=== PATIENT | male | born 1985 | race Caucasian/White ===

== ENCOUNTER 2018-02-26 18:19 | Emergency (ER) | payer OTHER ==
[2018-02-26 18:57] VITALS: TEMP 98.4
[2018-02-26] MEDS ORDERED: DIPH,PERTUS(ACELL)TETVAC-LF 0.5 ML VIAL IM ONE (20:11)
[2018-02-26] MEDS ORDERED: LIDOCAINE 1% INJ 10MG/ML (20 ML MDV) SQ ONE (20:11)
[2018-02-26] MEDS ORDERED: ceFAZolin 1,000 MG VIAL IM STA (20:11)
--- NOTE | 2018-02-26 21:33 | XR ---
EXAMINATION TYPE: XR tibia fibula RT DATE OF EXAM: 02/26/2018 COMPARISON: NONE HISTORY: Leg pain TECHNIQUE: 4 views FINDINGS: I see no fracture nor dislocation. Joint spaces are normal. There is some lucency over the skin surface area of the anterior mid tibia that could be from laceration. IMPRESSION: No fracture seen.
--- NOTE | 2018-02-26 21:48 | ED ---
General Adult HPI - General Chief complaint: Wound/Laceration Stated complaint: R leg lac Time Seen by Provider: 02/26/18 19:33 Source: patient, RN notes reviewed Mode of arrival: ambulatory Limitations: no limitations - History of Present Illness Initial comments: 33-year-old male presents to the emergency department for a chief complaint of laceration to the right romero. Patient states this happened a couple hours ago when he was using an ax backwards and he accidentally lacerated his romero. Patient states he superglue day closed at the time. Patient states he did try to clean it out with alcohol be has that was all he had. Patient denies any weakness in the right lower extremity. Patient denies any other injuries. Patient denies any fevers or chills. Patient did not have any other injuries from this incident. Patient has no other complaints at this time including shortness of breath, chest pain, abdominal pain, nausea or vomiting, headache, or visual changes. - Related Data Previous Rx's Medication Instructions Recorded Cephalexin [Keflex] 500 mg PO Q8HR 5 Days cap 02/26/18 Allergies Allergy/AdvReac Type Severity Reaction Status Date / Time No Known Allergies Allergy Verified 02/26/18 18:57 Review of Systems ROS Statement: Those systems with pertinent positive or pertinent negative responses have been documented in the HPI. ROS Other: All systems not noted in ROS Statement are negative. Past Medical History Past Medical History: No Reported History History of Any Multi-Drug Resistant Organisms: None Reported Past Surgical History: Hernia Repair, Orthopedic Surgery Past Psychological History: No Psychological Hx Reported Smoking Status: Current every day smoker Past Alcohol Use History: Occasional Past Drug Use History: Marijuana General Exam Limitations: no limitations General appearance: alert, in no apparent distress Respiratory exam: Present: normal lung sounds bilaterally. Absent: respiratory distress, wheezes, rales, rhonchi, stridor Cardiovascular Exam: Present: regular rate, normal rhythm, normal heart sounds. Absent: systolic murmur, diastolic murmur, rubs, gallop, clicks Extremities exam: Present: normal inspection, full ROM (full ROM in the right ankle, toes, and knee), normal capillary refill (Capillary refill less than 2 seconds and pedal pulse 2+ in the right lower extremity), other (There is a 4 cm laceration to the anterior lower leg. Bone is visualized in the laceration and appears intact. No foreign bodies visualized. All deep structures intact. No spreading redness or streaking redness. No drainage or signs of infection. ). Absent: tenderness, pedal edema, joint swelling, calf tenderness Course Vital Signs 02/26/18 18:54 Temperature 98.4 F Pulse Rate 111 H Respiratory 18 Rate Blood Pressure 151/74 O2 Sat by Pulse 98 Oximetry Procedures - Laceration Laceration #1 Consent Obtained: verbal consent Indication: laceration Site: lower extremity, other (right romero) Size (cm): 4 Description: linear Anesthetic Used: lidocaine 1% Anesthesia Technique: local infiltration Pre-repair: wound explored, irrigated extensively (irrigated with 1 L sterile water), deep structures intact, foreign body removed (none found) Type of Sutures: vicryl Size of Sutures: 5-0 Technique: simple, interrupted Patient Tolerated Procedure: well Medical Decision Making - Medical Decision Making 33-year-old male with a laceration to the left romero. It is about 4 cm in length and happened a few hours ago. Patient accidentally hit himself with an ax. Full range of motion in the right lower extremity and sensation intact. Neurovascular intact. Wound was irrigated extensively with a liter of sterile water. It was then cleaned with iodine and sterile procedure was used to apply sutures. There are 7 sutures total. Patient was given a tetanus shot and Ancef in the emergency department. He will be given five-day course of Keflex to prevent infection. He is to return to the emergency department if he notices any signs of infection which were discussed extensively with him. He is to follow up with primary care for wound check. Disposition Clinical Impression: Laceration Disposition: HOME SELF-CARE Condition: Good Instructions: Care For Your Stitches (ED), Laceration (ED) Additional Instructions: Please take Keflex as directed. Take Motrin or Tylenol for pain. Please have wound rechecked in the next couple days by primary care. Please monitor for any worsening symptoms. Please return in 7-10 sdays to have sutures removed. Please return to the emergency department if you notice any spreading redness, streaking redness or drainage from the site or fevers. Prescriptions: Cephalexin [Keflex] 500 mg PO Q8HR 5 Days cap Is patient prescribed a controlled substance at d/c from ED?: No Referrals: Erasmo Dimas MD [STAFF PHYSICIAN] - 1-2 days Time of Disposition: 21:44
[2018-02-26 22:17] VITALS: BP 128/69; PULSE 80; RESP 16
== END 2018-02-26 22:05 | disposition home or self-care (01) ==
LOC: EC 18:19
DX: S81.811A Laceration without foreign body, right lower leg, initial encounter (principal); F17.200 Nicotine dependence, unspecified, uncomplicated; Z23 Encounter for immunization; W26.8XXA Contact with other sharp object(s), not elsewhere classified, initial encounter
CPT/HCPCS: 73590; 90715; 99283; 12002; 96372; 90471; J0690; J2001